=== PATIENT | female | born 1930 | race Caucasian/White ===

== ENCOUNTER → 2017-02-06 | Outpatient (CLI) | payer OTHER | LOC: RAD 02:53 | DX: Z12.31 Encounter for screening mammogram for malignant neoplasm of breast (principal) ==

== ENCOUNTER → 2018-03-08 | Outpatient (CLI) | payer OTHER | LOC: RAD 01:55 | DX: Z12.31 Encounter for screening mammogram for malignant neoplasm of breast (principal) ==

== ENCOUNTER → 2019-06-24 | Outpatient (CLI) | payer OTHER | LOC: RAD 02:46 | DX: Z12.31 Encounter for screening mammogram for malignant neoplasm of breast (principal) ==